=== PATIENT | male | born 1990 | race Caucasian/White ===

== ENCOUNTER 2019-07-28 11:03 | Emergency (ER) | payer SELFPAY ==
[~2019-07-28] VITALS: Ht 180.3 cm; Wt 90.7 kg
[2019-07-28 11:31] VITALS: BP 120/75
[2019-07-28] MEDS ORDERED: Meclizine 25mg tab ORAL PRN (12:15)
[2019-07-28 12:47] LABS: APPEARANCE,URINE CLEAR; BILIRUBIN, URINE NEGATIVE (NEGATIVE); COLOR,URINE PALE YELLOW; GLUCOSE, URINE (UA) NEGATIVE (NEGATIVE); KETONES,URINE NEGATIVE (NEGATIVE); LEUKOCYTE ESTERASE ,URINE NEGATIVE (NEGATIVE); NITRITE,URINE NEGATIVE (NEGATIVE); PH,URINE 6.5 (4.5-8.0); PROTEIN,URINE NEGATIVE (NEGATIVE); UROBILINOGEN,URINE NORMAL MG/DL (0.0-1.0)
[2019-07-28 12:48] LABS: ANION GAP 12 mmol/L (5-15); BLOOD UREA NITROGEN 4 mg/dL (7-18); CALCIUM 9.6 MG/DL (8.5-10.1); CARBON DIOXIDE 26 MMOL/L (21-32); CHLORIDE 101 MMOL/L (98-107); CREATININE 0.8 MG/DL (0.55-1.30); POTASSIUM 3.8 MMOL/L (3.5-5.1); SODIUM 139 MMOL/L (136-145)
[2019-07-28 12:50] LABS: BASOPHILS % (AUTO) 0.7 % (0.0-2.0); EOSINOPHILS % (AUTO) 0.2 % (0.0-3.0); HEMATOCRIT 46.7 % (42.0-52.0); HEMOGLOBIN 16.1 G/DL (14.2-18.0); LYMPHOCYTES % (AUTO) 10.3 % (20.0-45.0); MEAN CORPUSCULAR VOLUME 88 FL (80-99); MONOCYTES % (AUTO) 5.1 % (1.0-10.0); NEUTROPHILS % (AUTO) 83.7 % (45.0-75.0); PLATELET COUNT 308 K/UL (150-450); RED BLOOD COUNT 5.31 M/UL (4.70-6.10); RED CELL DISTRIBUTION WIDTH 11.5 % (11.6-14.8); WHITE BLOOD COUNT 9.6 K/UL (4.8-10.8)
[2019-07-28 13:02] LABS: ALANINE AMINOTRANSFERASE 40 U/L (12-78); ALBUMIN 4.6 G/DL (3.4-5.0); ALBUMIN/GLOBULIN RATIO 1.3 (1.0-2.7); ALKALINE PHOSPHATASE 79 U/L (46-116); ASPARTATE AMINO TRANSFERASE 25 U/L (15-37); BILIRUBIN,TOTAL 0.5 MG/DL (0.2-1.0)
[2019-07-28 13:10] VITALS: BP 122/78
--- NOTE | 2019-07-28 13:17 | Diagnostic Imaging Report ---
Indication: Dyspnea Comparison: None A single view chest radiograph was obtained. Findings: Cardiomediastinal appearance is within normal limits for age. The lungs are clear. Pulmonary vascularity is appropriate. The diaphragmatic contour is smooth and costophrenic angles are sharp. No pleural effusions are identified. The bones are unremarkable. Impression: No acute findings
--- NOTE | 2019-07-28 13:17 | Emergency Room Report ---
History of Present Illness General Chief Complaint: Dizziness Source: Patient Present Illness HPI 29-year-old male with history of benign positional vertigo and Adderall abuse here complaining of sudden onset of dizziness and vertigo x1 day. Complains of nausea however denies vomiting. Reports that he was trying to clean his ears yesterday where he pushed many Q-tips in and because ear pain. Patient reports that over the years he has been doing and has been having a lot of cotton balls inside his ear. Denies fever and chills at this time. Reports that he is currently in a rehab center. Has not use any Adderall in the past 2 weeks. Heart rate is elevated. Denies chest pain, shortness of breath, tobacco smoke, alcohol intake. Denies recent travel, fever and chills, urinary symptoms. Denies recent head injury, hearing loss, tinnitus. Reports vertigo with changing position of his head to the left. Allergies: Coded Allergies: No Known Allergies (Unverified , 07/28/19) Patient History Past Medical History: see triage record Past Surgical History: none Pertinent Family History: none Immunizations: UTD Reviewed Nursing Documentation: PMH: Agreed; PSxH: Agreed Nursing Documentation-PMH Past Medical History: No Stated History Review of Systems All Other Systems: negative except mentioned in HPI Physical Exam Vital Signs Date Time Temp Pulse Resp B/P (MAP) Pulse Ox O2 Delivery O2 Flow Rate FiO2 07/28/19 11:25 97.9 140 18 119/69 (86) 99 Room Air Sp02 EP Interpretation: reviewed, abnormal - Elevated heart rate General Appearance: no apparent distress, alert, GCS 15, non-toxic Head: normocephalic, atraumatic Eyes: bilateral eye normal inspection, bilateral eye PERRL ENT: normal pharynx, other - Left TM bulging with pus drainage cannot visualize , how much cotton ball is in ear Neck: full range of motion, supple, no meningismus, supple/symm/no masses Respiratory: lungs clear, normal breath sounds, no rhonchi, no respiratory distress, no wheezing Cardiovascular #1: regular rate, rhythm, no edema, no murmur Cardiovascular #2: 2+ carotid (R), 2+ carotid (L), 2+ radial (R), 2+ radial (L) Gastrointestinal: normal bowel sounds, non tender, soft, non-distended, no guarding, no rebound Rectal: deferred Genitourinary: no CVA tenderness Musculoskeletal: back normal, no calf tenderness Neurologic: alert, motor strength/tone normal, oriented x3, sensory intact, responsive, speech normal Psychiatric: judgement/insight normal, memory normal, mood/affect normal, no suicidal/homicidal ideation Skin: no rash Lymphatic: no adenopathy Medical Decision Making PA Attestation All my diagnosis and treatment plans were reviewed ad discussed with my supervising physician Dr. Avalos Diagnostic Impression: Primary Impression: Benign positional vertigo Additional Impressions: Otitis media Amphetamine withdrawal ER Course 29-year-old male with history of benign positional vertigo and Adderall abuse here complaining of sudden onset of dizziness and vertigo x1 day. Complains of nausea however denies vomiting. Reports that he was trying to clean his ears yesterday where he pushed many Q-tips in and because ear pain. Patient reports that over the years he has been doing and has been having a lot of cotton balls inside his ear. Denies fever and chills at this time. Reports that he is currently in a rehab center. Has not use any Adderall in the past 2 weeks. Heart rate is elevated. Denies chest pain, shortness of breath, tobacco smoke, alcohol intake. Denies recent travel, fever and chills, urinary symptoms. Denies recent head injury, hearing loss, tinnitus. Reports vertigo with changing position of his head to the left. Ddx considered but are not limited to: Dizziness due to alcohol intoxication, dizziness unspecified, dizziness due to head trauma, dizziness secondary to cardiac reasons, benign positional vertigo Vital signs: are WNL, pt. is afebrile H&PE are most consistent with: Benign positional vertigo, otitis media left ear , amphetamine withdrawal ORDERS: CMP, UA, EKG, troponin, tox screen, Augmentin, meclizine, Zofran ER intervention: NS bolus, meclizine and Zofran DISCHARGE: At this time pt. is stable for d/c to home. Will provide printed patient care instructions, and any necessary prescriptions. Care plan and follow up instructions have been discussed with the patient prior to discharge. Advised patient to follow-up with ENT for recurrent also lavaged the ER at this time due to patient having otitis media in the affected ear. Patient follow-up with ENT as soon as possible. Tachycardia secondary to amphetamine withdrawal patient heart rate went back to normal after fluid intake. If worsening symptoms return to the emergency room. EKG Diagnostic Results Rate: tachycardiac Rhythm: other - Tacky ST Segments: no acute changes Other Impression No acute changes Last Vital Signs Date Time Temp Pulse Resp B/P (MAP) Pulse Ox O2 Delivery O2 Flow Rate FiO2 07/28/19 11:31 97.9 120 18 120/75 99 Room Air Disposition: HOME, SELF-CARE Condition: Stable Scripts Ondansetron (Zofran) 4 Mg Tablet 4 MG ORAL Q6H PRN for Nausea & Vomiting, #14 TAB Prov: Steven Vasquez 07/28/19 Meclizine Hcl* (MECLIZINE*) 25 Mg Tablet 25 MG ORAL THREE TIMES A DAY, #15 TAB Prov: Steven Vasquez 07/28/19 Amoxicillin/Potassium Clav 875-125* (AUGMENTIN 875-125 TABLET*) 1 Each Tablet 1 TAB ORAL TWICE A DAY for 10 Days, #20 TAB Prov: Stevne Vasquez 07/28/19 Referrals: NOT CHOSEN IPA/MD,REFERRING (PCP) Patient Instructions: Dizziness, Otitis Media, Adult, [id number], Vertigo Additional Instructions: Take medication as directed, follow-up with your primary care provider, you need to be sent to ENT regarding your recurrent vertigo and dizziness. return to ER if worsening symptoms. Steven Vasquez Jul 28, 2019 13:17
[2019-07-28] MEDS ORDERED: MECLIZINE HCL25 MG ORAL (13:19)
[2019-07-28] MEDS ORDERED: ZOFRAN4 M1 ORAL (13:19)
[2019-07-28] MEDS ORDERED: AUGMENTIN 875-1 EAC1 ORAL (13:19)
== END 2019-07-28 13:10 | disposition home or self-care (01) ==
LOC: EMR 12:40
DX: H81.12 Benign paroxysmal vertigo, left ear (principal); H66.92 Otitis media, unspecified, left ear; F15.93 Other stimulant use, unspecified with withdrawal
CPT/HCPCS: 36415; 71045; 80053; 80307; 81003; 84439; 84443; 85025; 93005; 96361; 96374; 99284; G0480; J2405; J7030

== ENCOUNTER 2019-07-30 03:19 | Emergency (ER) | payer SELFPAY ==
[~2019-07-30] VITALS: Ht 185.4 cm; Wt 90.7 kg
[~2019-07-30 03:19] MED LIST: AUGMENTIN 875-1 EAC1 ORAL; MECLIZINE HCL25 MG ORAL; ZOFRAN4 M1 ORAL
--- NOTE | 2019-07-30 03:19 | NUR ---
ED Nurse Note: pt presents to ED via EMS [facility] [id number] from a rehab facility c/o ringing in his L ear x 2 weeks. pt is concerned that there is a bug in his ear. pt was seen and evaluted here yesterday and given ear drops for an infection. pt denies pain, reports that it is uncomfortable
--- NOTE | 2019-07-30 03:20 | NUR ---
ED Nurse Note: pt appears to be anxious and requesting ENT specialists and xray to find what is in his ear. pt states that he cannot relax and hears "mumbling" in his ear
[2019-07-30 03:21] VITALS: BP 120/79
[2019-07-30] MEDS ORDERED: DiphenhydrAMINE 50mg/ml Inj IM ONE (03:45)
[2019-07-30] MEDS ORDERED: ACETIC ACID15 ML BOTH EARS (03:47)
--- NOTE | 2019-07-30 03:49 | Emergency Room Report ---
History of Present Illness General Chief Complaint: Earache Source: Patient Present Illness HPI This is a 29-year-old male who is currently at a sober living for rehab from [facility]. He been off of Adderall for a couple weeks now. He presents with chief complaint of ringing in his ears. This is been a chronic problem that is been going on for weeks but worse since he been off of Adderall. He said it is ringing and he felt dizzy. He also felt that there is something crawling behind his ears. He has been trying to flush it out and using a Q-tip also. He said he felt like he pushed it deep in there. He was here couple days ago for the same thing. There was no foreign body noted. Patient denies any fever chills. He said he felt anxious because of this problem. He wants us to flush it out. He wants to get an MRI and do surgery if necessary. He denies any trauma. No nausea vomiting or diarrhea. Allergies: Coded Allergies: No Known Allergies (Unverified , 07/28/19) Patient History Past Medical History: see triage record, old chart reviewed Past Surgical History: none Pertinent Family History: none Social History: Denies: smoking Immunizations: other Reviewed Nursing Documentation: PMH: Agreed; PSxH: Agreed Nursing Documentation-PMH Past Medical History: No History, Except For History Of Psychiatric Problem: Yes Review of Systems Eye: Denies: eye pain, blurred vision ENT: Denies: ear pain, nose congestion, throat swelling Respiratory: Denies: cough, shortness of breath Cardiovascular: Denies: chest pain, palpitations Gastrointestinal: Denies: abdominal pain, diarrhea, nausea, vomiting Musculoskeletal: Denies: back pain, joint pain Skin: Denies: rash Neurological: Denies: headache, numbness Endocrine: Denies: increased thirst, increased urine Hematologic/Lymphatic: Denies: easy bruising All Other Systems: negative except mentioned in HPI Physical Exam Vital Signs Date Time Temp Pulse Resp B/P (MAP) Pulse Ox O2 Delivery O2 Flow Rate FiO2 07/30/19 03:15 98.2 156 07/30/19 03:15 20 120/79 (93) 98 Room Air Vitals with tachycardia. Repeat heart rate is 1 30-1 40s here. Sp02 EP Interpretation: reviewed, normal General Appearance: well appearing, no apparent distress, alert Head: normocephalic, atraumatic Eyes: bilateral eye PERRL, bilateral eye EOMI ENT: hearing grossly normal, normal pharynx, other - Bilateral TMs are dull with questionable effusion. The canal itself showed whitish discoloration. Neck: full range of motion, supple, no meningismus Respiratory: chest non-tender, lungs clear, normal breath sounds Cardiovascular #1: regular rate, rhythm, no murmur Gastrointestinal: normal bowel sounds, non tender, no mass, no organomegaly, no bruit, non-distended Musculoskeletal: back normal, normal range of motion, gait/station normal Psychiatric: mood/affect normal Medical Decision Making Diagnostic Impression: Primary Impression: Tinnitus of both ears ER Course Patient with tinnitus. Mostly in the left side. Try to explain to the patient that there is no foreign body. He does not have any bugs behind his eardrum. There is no perforation. I suspect that he has some skin issue in his canal because of the fluid he tried to flush it out with. I will put in some eardrops to see that would help. Told patient that he does not need an emergent MRI in the middle of the night of his ears. This can be done as an outpatient. He will need referral to see an ear nose and throat doctor. He may need to get audiology testing. This may be also secondary to delusional parasitosis secondary to drug abuse. His drug screen was negative. Patient is in a rehab center so cannot get controlled substance. I will give him Benadryl to see if that will calm him down. Last Vital Signs Date Time Temp Pulse Resp B/P (MAP) Pulse Ox O2 Delivery O2 Flow Rate FiO2 07/30/19 03:21 98.2 110 20 120/79 98 Room Air Status: improved Disposition: HOME, SELF-CARE Condition: Stable Scripts Acetic Acid (ACETIC ACID) 15 Ml Solution 3 DROP BOTH EARS FOUR TIMES A DAY, #15 ML Prov: Nicko Hunt MD 07/30/19 Additional Instructions: DO NOT put anything in your ears. This including Q-tip or flushing with any fluids. There is no foreign body or bugs in your ear canals. Follow-up with your doctor in a week. You will need a referral to see an ENT doctor. You may need hearing test. Your doctor may also order an outpatient MRI of your ear canals. Going to the ER for this would not help with the situation. Return for any new complaints. Nicko Hunt MD Jul 30, 2019 03:49
--- NOTE | 2019-07-30 03:50 | NUR ---
ED Nurse Note: spoke with Mookie from [facility]. he gave the door passcode ([id number]) and instructed pt to walk back to facility and he would let the pt back in. pt verbalized understanding of instructions
[2019-07-30 03:55] VITALS: BP 120/79
--- NOTE | 2019-07-30 03:55 | NUR ---
ED Nurse Note: Pt cleared by health care Provider for discharge. DC instructions and prescription instructions were given and explained to pt. pt verbalized understanding of teachings. All medical devices such as ID band removed. Pt is AAO x4, ambulatory with steady gait, given directions to get back home and left with all personal belongings.
== END 2019-07-30 03:55 | disposition home or self-care (01) ==
LOC: EDBD 03:19 → EMR 03:42
DX: H93.13 Tinnitus, bilateral (principal)
CPT/HCPCS: 96372; 99283; J1200